=== PATIENT | male | born 1965 | race African-American/Black ===

== ENCOUNTER 2018-07-07 12:33 | Emergency (ER) | payer OTHER ==
[2018-07-07 12:50] VITALS: BP 155/94; PULSE 50; TEMP 98.3; BMI 32.8
[2018-07-07] MEDS ORDERED: KETOROLAC TROMETHAMINE 60 MG/2 ML VIAL IM ONE (15:35)
--- NOTE | 2018-07-07 15:42 | PDOC ---
History of Present Illness - General Chief Complaint: Injury Stated Complaint: FALL Time Seen by Provider: 07/07/18 15:17 History Source: Patient Exam Limitations: Clinical Condition - History of Present Illness Initial Comments: 07/07/18 15:37 Patient with no significant past medical history present with complaint of left- sided neck and left shoulder pain status post slip and fall going down a ramp today which was icy. Patient reported increased pain to left-sided neck with rotation of the neck to the right. Patient denies hitting head or loss of consciousness. Patient denies any other symptoms. Timing/Duration: 4-6 hours Past History - Past Medical History Allergies/Adverse Reactions: Allergies Allergy/AdvReac Type Severity Reaction Status Date / Time No Known Allergies Allergy Verified 07/07/18 12:50 Home Medications: Ambulatory Orders Methocarbamol [Robaxin -] 500 mg PO BID PRN #14 tablet 07/07/18 Naproxen 500 mg PO BID PRN #20 tablet 07/07/18 COPD: No - Suicide/Smoking/Psychosocial Hx Smoking History: Never smoked Information on smoking cessation initiated: No Hx Alcohol Use: No Drug/Substance Use Hx: No Review of Systems - Review of Systems Able to Perform ROS?: Yes Is the patient limited Greek proficient: No Constitutional: No: Malaise, Weakness HEENTM: No: Eye Pain, Blurred Vision, Recent change in vision Respiratory: No: Symptoms reported Cardiac (ROS): No: Symptoms Reported ABD/GI: No: Nausea, Vomiting Musculoskeletal: Yes: See HPI, Muscle Pain (posterior left shoulder), Neck Pain (left side of neck). No: Back Pain, Joint Swelling, Muscle Weakness, Joint Stiffness Neurological: No: Headache, Numbness, Paresthesia, Tingling All Other Systems: Reviewed and Negative *Physical Exam - Vital Signs Last Vital Signs Temp Pulse Resp BP Pulse Ox 98.3 F 50 L 19 155/94 99 07/07/18 12:48 07/07/18 12:48 07/07/18 12:48 07/07/18 12:48 07/07/18 12:48 - Physical Exam Comments: 07/07/18 15:39 GENERAL: Well developed, well nourished. Awake and alert. No acute distress. CARDIOVASCULAR: Regular rate and rhythm. No murmurs, rubs, or gallops. PULMONARY: No evidence of respiratory distress. Lungs clear to auscultation bilaterally. No wheezing, rales or rhonchi. ABDOMINAL: Soft. Non-tender. Non-distended. No rebound or guarding. No organomegaly. Normoactive bowel sounds MUSCULOSKELETAL : mild tenderness over posterior paravertebral muscle left side of neck and posterior left shoulder. Free range of motion of neck. 5 out of 5 muscle strength to left upper extremity. No bony deformities EXTREMITIES: No cyanosis. No clubbing. No edema. SKIN: Warm and dry. Normal capillary refill. No rashes. No jaundice. NEUROLOGICAL: Alert, awake, appropriate. No motor deficits in the lower extremities. Gait is normal without ataxia. PSYCHIATRIC: Cooperative. Good eye contact. Appropriate mood and affect. General Appearance: Yes: Nourished, Appropriately Dressed. No: Apparent Distress Moderate Sedation - Procedure Monitoring Vital Signs: Procedure Monitoring Vital Signs Temperature 98.3 F 07/07/18 12:48 Pulse Rate 50 L 07/07/18 12:48 Respiratory Rate 19 07/07/18 12:48 Blood Pressure 155/94 07/07/18 12:48 O2 Sat by Pulse Oximetry (%) 99 07/07/18 12:48 ED Treatment Course - RADIOLOGY Radiology Studies Ordered: Category Date Time Status SHOULDER-LEFT [RAD] Stat Radiology 07/07/18 15:34 Ordered SPINE-CERVICAL [RAD] Stat Radiology 07/07/18 15:34 Ordered Medical Decision Making - Medical Decision Making 07/07/18 15:41 Patient with no significant past medical history present with complaint of left- sided neck and shoulder pain status post slip and fall today. His exam significant for moderate tenderness to paracervical muscle C2-C5 and posterior left shoulder. Symptoms likely neck and shoulder strain. X-ray of cervical spine and left shoulder ordered. Toradol 60 mg IM ordered for pain. 07/07/18 16:06 X-ray of cervical spine and the shoulder shows no acute pathology. Symptoms likely neck and shoulder sprain. Patient stable for discharge on naproxen for pain and Robaxin muscle relaxer with orthopedics follow-up as needed. *DC/Admit/Observation/Transfer Diagnosis at time of Disposition: Neck muscle strain Qualifiers: Encounter type: initial encounter Qualified Code(s): S16.1XXA - Strain of muscle, fascia and tendon at neck level, initial encounter Left shoulder strain Qualifiers: Encounter type: initial encounter Qualified Code(s): S46.912A - Strain of unspecified muscle, fascia and tendon at shoulder and upper arm level, left arm , initial encounter - Discharge Dispostion Disposition: HOME Condition at time of disposition: Stable Decision to Admit order: No - Prescriptions Prescriptions: Methocarbamol [Robaxin -] 500 mg PO BID PRN #14 tablet PRN Reason: neck pain Naproxen 500 mg PO BID PRN #20 tablet PRN Reason: pain - Referrals Referrals: Alhaji Barajas DO [Staff Physician] - - Patient Instructions Printed Discharge Instructions: Whiplash Additional Instructions: X-ray shows no fracture or dislocation. Take prescribed medication as needed for pain. Rest neck and left shoulder. Apply heat to neck and shoulder 2-3 times a day for 5-10 minutes as needed for pain and follow-up with referred to orthopedics if symptoms persist for more than 4 days - Post Discharge Activity Forms/Work/School Notes: Back to Work
[2018-07-07] MEDS ORDERED: KETOROLAC TROMETHAMINE 60 MG/2 ML VIAL ONE (15:43)
== END 2018-07-07 16:12 | disposition home or self-care (01) ==
LOC: JERFT 12:33
PROC: 3E0233Z Introduction of Anti-inflammatory into Muscle, Percutaneous Approach (ICD-10-PCS; principal; 2018-07-07)
DX: S46.912A Strain of unspecified muscle, fascia and tendon at shoulder and upper arm level, left arm, initial encounter (principal); S16.1XXA Strain of muscle, fascia and tendon at neck level, initial encounter; V43.52XA Car driver injured in collision with other type car in traffic accident, initial encounter; Y93.89 Activity, other specified; Y92.410 Unspecified street and highway as the place of occurrence of the external cause
CPT/HCPCS: 72050-TC-FY; 73030-TC-LT-FY; 99281-25

== ENCOUNTER 2018-12-12 02:45 | Observation (INO) | payer SELFPAY ==
--- NOTE | 2018-12-12 03:02 | PDOC ---
History of Present Illness - General Chief Complaint: Chest Pain Stated Complaint: CHEST PAIN/LEFT ARM SENSATION Time Seen by Provider: 12/12/18 03:00 History Source: Patient Exam Limitations: No Limitations - History of Present Illness Initial Comments: Lorne Alcantara is a 53 yo obese M w a pmh of HTN who presents to the [facility] ER via private auto with the CC of left sided chest pain. The patient rates the pain as 6/10 and describes the pain as an uncomfortable sharp feeling. The patient states the pain radiates down his left arm. The patient states the pain is associated with nausea but no emesis. The patient states the pain has been present for almost a week now, has not gotten worse or better but is intermittent in nature. He states he does not believe the pain is worse with physical activity, is not associated with diaphoresis, and the pain is not worsened by taking a deep breath, movement of his arm, or palpation of his chest. The patient has not tried taking any medications for his pain. Patient endorses a significant family hx of heart disease. Denies ankle or wrist swelling, denies dyspnea on exertion, denies orthopnea. The patient denies recent travel/surgeries/immobility, lower extremity edema, calf pain or tenderness, tobacco use, hormone use, or personal history of thrombosis. 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 Denies smoking, cocaine usage, or illicit drug usage. Allergies: NKA, NKDA Past History - Past Medical History Allergies/Adverse Reactions: Allergies Allergy/AdvReac Type Severity Reaction Status Date / Time No Known Allergies Allergy Verified 12/12/18 06:00 Home Medications: Ambulatory Orders NK [No Known Home Medication] 12/12/18 COPD: No - Suicide/Smoking/Psychosocial Hx Smoking History: Never smoked Hx Alcohol Use: No Drug/Substance Use Hx: No Review of Systems - Review of Systems Able to Perform ROS?: Yes Comments:: CONSTITUTIONAL: Absent: fever, chills, diaphoresis, generalized weakness, malaise, loss of appetite HEENT: Absent: rhinorrhea, nasal congestion, throat pain, throat swelling, difficulty swallowing, mouth swelling, ear pain, eye pain, visual Changes CARDIOVASCULAR: Present: Chest pain Absent: syncope, palpitations, irregular heart rate, lightheadedness, peripheral edema RESPIRATORY: Absent: cough, shortness of breath, dyspnea with exertion, orthopnea, wheezing, stridor, hemoptysis GASTROINTESTINAL: Present: nausea Absent: abdominal pain, abdominal distension, vomiting, diarrhea, constipation, melena, hematochezia GENITOURINARY: Absent: dysuria, frequency, urgency, hesitancy, hematuria, flank pain, genital pain MUSCULOSKELETAL: Absent: myalgia, arthralgia, joint swelling SKIN: Absent: rash, itching, pallor HEMATOLOGIC/IMMUNOLOGIC: Absent: easy bleeding, easy bruising, lymphadenopathy, frequent infections ENDOCRINE: Absent: unexplained weight gain, unexplained weight loss, heat intolerance, cold intolerance NEUROLOGIC: Absent: headache, focal weakness or paresthesias, dizziness, unsteady gait, seizure, mental status changes, bladder or bowel incontinence PSYCHIATRIC: Absent: anxiety, depression, suicidal or homicidal ideation, hallucinations. *Physical Exam - Physical Exam Comments: GENERAL: Well developed, well nourished. Awake and alert. No acute distress. HEENT: Normocephalic, atraumatic. PERRLA, EOMI. No conjunctival pallor. Sclera are non- icteric. Moist mucous membranes. Oropharynx is clear. NECK: Supple. Full ROM. No JVD. No lymphadenopathy. CARDIOVASCULAR: Bradycardic rate. Regular rhythm. No murmurs, rubs, or gallops. Distal pulses are 2+ and symmetric. PULMONARY: No evidence of respiratory distress. Lungs clear to auscultation bilaterally. No wheezing, rales or rhonchi. ABDOMINAL: Soft. Non-tender. Non-distended. No rebound or guarding. No organomegaly. Normoactive bowel sounds. MUSCULOSKELETAL Normal range of motion at all joints. No bony deformities or tenderness. No CVA tenderness. EXTREMITIES: No cyanosis. No clubbing. No edema. No calf tenderness. SKIN: Warm and dry. Normal capillary refill. No rashes. No jaundice. NEUROLOGICAL: Alert, awake, appropriate. Cranial nerves 2-12 intact. No deficits to light touch in face, upper extremities and lower extremities. No motor deficits in the in face, upper extremities and lower extremities. Normal speech. Gait is normal without ataxia. PSYCHIATRIC: Cooperative. Good eye contact. Appropriate mood and affect. Heart Score/ECG Review - History History: Moderately suspicious - Electrocardiogram EKG: Significant ST-depression - Age Age: 45-65 - Risk Factors Risk Factors Heart Score: Yes Hx Hypertension, Yes Positive family hx of cardiac disease, Yes Hx Obesity Based on the list above the patient has:: >/=3 risk factors or Hx atherosclerotic disease - Troponin Troponin: </= normal limit - Score Heart Score - Total: 6 - ECG Intrepretation Rhythm: Regular Rhythm - [place]: Left [place] Deviation - P and VA Prominent R with upright T in V1 (true posterior MO): No Delta Wave(s) Present: No WPW: No - QRS Increased Voltage: Precordial Leads Poor R Wave Progression: No Q Wave Present: No - ST and T Early Repolarization: No Non Specific ST-T Wave changes: Yes ST Depression Suggest: Ischemia Flattened T Waves: Yes Prolonged Q-T Interval: No - ECG Impressions Normal ECG: No Non-specific ST Elevation: No Ischemic Changes: Yes (ST depressions V5/V6) Bradycardia: Yes Torsades mame Pointes: No WPW: No ED Treatment Course - LABORATORY CBC & Chemistry Diagram: 12/12/18 03:30 12/12/18 10:39 - RADIOLOGY Radiograph Interpretation: CXR: 2 view chest Chest pain Trachea midline with mild cardiomegaly. Mild uncoiling aortic arch with no mediastinal widening No infiltrate, mass or effusion in the lungs. No rib fracture or pneumothorax Impression: No infiltrate or edema in the lungs, no acute changes noted. Medical Decision Making - Medical Decision Making Lorne Alcantara is a 53 yo obese M w a pmh of HTN who presents to the [facility] ER via private auto with the CC of left sided chest pain. The patient rates the pain as 6/10 and describes the pain as an uncomfortable sharp feeling. The patient states the pain radiates down his left arm. The patient states the pain is associated with nausea but no emesis. The patient states the pain has been present for almost a week now, has not gotten worse or better but is intermittent in nature. He states he does not believe the pain is worse with physical activity, is not associated with diaphoresis, and the pain is not worsened by taking a deep breath, movement of his arm, or palpation of his chest. The patient has not tried taking any medications for his pain. Patient endorses a significant family hx of heart disease. Denies ankle or wrist swelling, denies dyspnea on exertion, denies orthopnea. The patient denies recent travel/surgeries/immobility, lower extremity edema, calf pain or tenderness, tobacco use, hormone use, or personal history of thrombosis. VS: Bradycardic in the mid 40's DDx IBNLT: ACS/MO, Angina, arrhythmia, heart failure, pneumothorax, PNA, electrolyte/metabolic disturbance, MSK chest pain/costochondritis, pericarditis - Low likelihood for PE as he is Wells score 0 HEART score: 6 Plan: Labs, EKG, CXR, IV hydration, admission to telemetry for cardiac workup including ECHO, stress test, and cardiac consult. EKG: Sinus bradycardia rate of 48, narrow complexes, LAD, borderline LVH, [address] depression in leads V4 and V5, no ST elevations, TWI in leads 2,3,aVF,V5,V6. VA - 174, QTc - 405. - No prior EKG's for comparison. Labs: Trop 1 negative. CXR: No acute pathology Disposition: Admission to Telemetry *DC/Admit/Observation/Transfer Diagnosis at time of Disposition: Acute electrocardiography changes Chest pain Qualifiers: Chest pain type: unspecified Qualified Code(s): R07.9 - Chest pain, unspecified - Discharge Dispostion Condition at time of disposition: Stable Decision to Admit order: Yes - Referrals - Patient Instructions - Post Discharge Activity
[2018-12-12] MEDS ORDERED: SODIUM CHLORIDE 500 ML IV STA (03:07)
--- NOTE | 2018-12-12 03:12 | PDOC ---
Attending Attestation - Resident Resident Name: Efren Mai - ED Attending Attestation I have performed the following: I have examined & evaluated the patient, The case was reviewed & discussed with the resident, I agree w/resident's findings & plan - HPI HPI: 12/12/18 04:50 left sided CP x 1 week on and off. Pt has low heart rate (last time her was in out ER years ago his heart rate was 50) and he has high BP for which he takes no meds (pt was told last year at [facility] that he has high BP when he was admitted for pneumonia) Pt has no SOB and he has no pitting edema. Just on and off CP that he thought he should get checked out. - Physicial Exam PE: 12/12/18 04:51 Agree with resident exam Pt's exam is normal. Pt has no pitting edema. Heart and lungs clear. - Medical Decision Making 12/12/18 04:52 EKG flipped T waves and normal labs and normal CXR and normal exam. Pt will be admitted to tele obs. Pt has no PMD and no wordpress developer to follow up. Heart Score/ECG Review - ECG Intrepretation Rhythm: Regular Rhythm - [place]: Normal - ST and T Early Repolarization: No Non Specific ST-T Wave changes: Yes Flattened T Waves: Yes Prolonged Q-T Interval: No - ECG Impressions Normal ECG: No Non-specific ST Elevation: No Ischemic Changes: Yes (inferior t waves flipped) Bradycardia: Yes Torsades mame Pointes: No WPW: No
[2018-12-12 03:43] LABS: EOS % 3.6 % (0-4.5)
[2018-12-12 03:56] LABS: BASO % 1.3 % (0-2.0); HEMATOCRIT 39.2 % (35.4-49); HEMOGLOBIN 13.3 GM/dL (11.7-16.9); INR 1.03 (0.83-1.09); LYMPH % 33.4 % (8-40); MCH 32.3 pg (25.7-33.7); MEAN CELL VOLUME 94.8 fl (80-96); MONO % 12.9 % (3.8-10.2); NEUT % 48.8 % (42.8-82.8); PLATELET COUNT 189 K/MM3 (134-434); PROTHROMBIN TIME (PATIENT) 12.2 SEC (9.7-13.0); RBC 4.13 M/mm3 (4.00-5.60); RDW 13.2 % (11.9-15.9); WHITE BLOOD COUNT 4.1 K/mm3 (4.0-10.0)
--- NOTE | 2018-12-12 04:48 | PN ---
Teaching Attending Note Name of Resident: Flei Ospina ATTENDING PHYSICIAN STATEMENT I saw and evaluated the patient. I reviewed the resident's note and discussed the case with the resident. I agree with the resident's findings and plan as documented. SUBJECTIVE: Patient is a 53 year old man with PMH of HTN who presents to the ER with left sided chest pain. He rates the pain as 6/10 and describes the pain as an uncomfortable sharp feeling that radiates down his left arm, associated with nausea but no emesis. The patient states the pain has been present for almost a week now, has not gotten worse or better but is intermittent in nature. He states he does not believe the pain is worse with physical activity, is not associated with diaphoresis, and the pain is not worsened by taking a deep breath, movement of his arm, or palpation of his chest. The patient has not tried taking any medications for his pain. Patient has a significant family history of heart disease. He has not been taking his antihypertensive medications for a while. Denies alcohol abuse, smoking or illicit drug usage. Denies ankle or wrist swelling, dyspnea on exertion, orthopnea, recent travel/surgeries/prolonged immobility, lower extremity edema, calf pain/tenderness, or history of VTE. OBJECTIVE: Alert Vital Signs Period Temp Pulse Resp BP Sys/[place] Pulse Ox Last 24 Hr 98.3 F 48-50 18 161-162/99-100 100-100 HEENT: No Jaundice, eye redness or discharge, PERRLA, EOMI. Normocephalic, atraumatic. External ears are normal and hearing is grossly intact. No nasal discharge. Neck: Supple, nontender. No palpable adenopathy or thyromegaly. No JVD Chest: Good effort. Clear to auscultation and percussion. Heart: Regular. No S3, rub or murmur Abdomen: Not distended, soft, nontender and no HSM. No rebound or guarding. Normal bowel sounds. Ext: Peripheral pulses intact. No leg edema. Skin: Warm and dry. No petechiae, rash or ecchymosis. Neuro: Alert. Oriented x3. CN 2-12 grossly intact. Sensation grossly intact in all four extremities and DTR are symmetric. Psych: Appropriate mood and affect. Good insight. Home Medications Medication Instructions Recorded NK [No Known Home Medication] 07/21/19 Abnormal Lab Results 12/12/18 03:30 Monocytes % 12.9 H Abnormal Lab Results 12/12/18 12/12/18 03:30 03:30 Monocytes % 12.9 H Chloride 108 H Anion Gap 4 L ASSESSMENT AND PLAN: 1. Chest pain - Patient has risk factors for CAD. Pain is now less intense. He got Aspirin 162 mg and 500 ml of IV NS in the ER. EKG shows sinus bradycardia with rate of 48, LAD, ST depression in leads V4 and V5, flat T waves in leads III, aVF, aVL, V1-3. There are no prior EKGs for comparison and initial troponin is normal. No acute abnormality on CXR. Will admit to telemetry to rule out ACS, get ECHO, TSH, fasting lipids, urinalysis, urine toxicology and consult Cardiology. 2. Obesity Counseled on the risks associated with obesity. Will provide patient all the necessary assistance, counseling and positive reinforcement to facilitate weight loss. Consult electric power machine operator. 3. Uncontrolled Hypertension - Will start Lisinopril 10 mg, HCTZ 12.5 mg and Amlodipine 5 mg. Revise regimen to ensure good BP control. Nonpharmacologic measures to control hypertension like weight loss, salt restriction and exercise discussed. 4. DVT prophylaxis - Lovenox 40 mg SQ q 24 hours. 5. Advance directives - Full code
[2018-12-12] MEDS ORDERED: ASPIRIN 81 MG CHEWABLE TABLETS PO ONE (04:50)
[2018-12-12 04:53] LABS: ALBUMIN 3.7 g/dl (3.4-5.0); BILIRUBIN,TOTAL 0.2 mg/dL (0.2-1); BLOOD UREA NITROGEN 16.2 mg/dL (7-18); CALCIUM 8.9 mg/dL (8.5-10.1); CREATININE 1.2 mg/dL (0.55-1.3); MAGNESIUM 2.2 mg/dL (1.8-2.4); N-TERMINAL BNP 31.3 pg/ml (5-125); POTASSIUM 4.2 mmol/L (3.5-5.1); TOT PROT 7.8 g/dl (6.4-8.2)
[2018-12-12] MEDS ORDERED: ASPIRIN 81 MG CHEWABLE TABLETS ONE (05:01)
[2018-12-12] MEDS ORDERED: LISINOPRIL 10 MG TABLET (FP) PO STA (05:57)
[2018-12-12] MEDS: LISINOPRIL 10 MG TABLET (FP) PO STA ×2 (06:06)
--- NOTE | 2018-12-12 06:57 | HP ---
CHIEF COMPLAINT: Chest pain PCP: Pt does not have PCP HISTORY OF PRESENT ILLNESS: 53 y.o. M PMH untreated HTN presents with midsternal chest pain of 1 week duration and hypertensive urgency. On admission, chest pain was sharp, 6/10 radiating down his left arm. The pain was non-reproducible, non-pleuritic. Pt endorses the pain started while he was at work lifting heavy boxes last week and it has since become progressively worse. He is able to walk multiple blocks without pain or shortness of breath. He also endorses nausea, denies emesis. Blood pressure on admission 162/100. Pt was on blood pressure medications about 1 year ago which he took for about 1 month but did not refill his medications. Patient says he has has a stress test in the past at [facility] but does not remember the results. Denies SOB/ fevers/ chills/ dizziness/ muscle pains. He has not followed up with a primary care doctor or cabin outfitter. Currently the patient's chest pain is 2/10 and does not radiate. ER course was notable for: (1) BP 161-18/ 99-102 (2) EKG sinus bradycardia 48, nonspecific ST changes (3) Neg trop x 1 (4) ASA 162, 500 cc bolus NS Recent Travel: Denies PAST MEDICAL HISTORY: HTN, pneumonia in 2018 (admitted to [facility], treated by Dr. 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 Neg paternal hx Allergies: NKDA/ NKFA No Known Allergies Allergy (Verified 12/12/18 06:00) HOME MEDICATIONS: Home Medications Medication Instructions Recorded NK [No Known Home Medication] 12/12/18 REVIEW OF SYSTEMS CONSTITUTIONAL: Absent: fever, chills, diaphoresis, generalized weakness, malaise, loss of appetite, weight change HEENT: Absent: rhinorrhea, nasal congestion, throat pain, throat swelling, difficulty swallowing, mouth swelling, ear pain, eye pain, visual changes CARDIOVASCULAR: CHEST PAIN Absent: syncope, palpitations, irregular heart rate, lightheadedness, peripheral edema RESPIRATORY: Absent: cough, shortness of breath, dyspnea with exertion, orthopnea, wheezing, stridor, hemoptysis GASTROINTESTINAL: Absent: abdominal pain, abdominal distension, nausea, vomiting, diarrhea, constipation, melena, hematochezia GENITOURINARY: Absent: dysuria, frequency, urgency, hesitancy, hematuria, flank pain, genital pain MUSCULOSKELETAL: Absent: myalgia, arthralgia, joint swelling, back pain, neck pain SKIN: Absent: rash, itching, pallor HEMATOLOGIC/IMMUNOLOGIC: Absent: easy bleeding, easy bruising, lymphadenopathy, frequent infections ENDOCRINE: Absent: unexplained weight gain, unexplained weight loss, heat intolerance, cold intolerance NEUROLOGIC: Absent: headache, focal weakness or paresthesias, dizziness, unsteady gait, seizure, mental status changes, bladder or bowel incontinence PSYCHIATRIC: Absent: anxiety, depression, suicidal or homicidal ideation, hallucinations. PHYSICAL EXAMINATION Vital Signs - 24 hr 12/12/18 12/12/18 12/12/18 03:00 03:25 03:48 Temperature 98.3 F Pulse Rate 50 L Pulse Rate [ 48 L Radial] Respiratory 18 Rate Blood Pressure 162/100 Blood Pressure 161/99 [Right Arm] O2 Sat by Pulse 100 100 100 Oximetry (%) 12/12/18 06:00 Temperature Pulse Rate Pulse Rate [ 47 L Radial] Respiratory 18 Rate Blood Pressure Blood Pressure 168/102 H [Right Arm] O2 Sat by Pulse 100 Oximetry (%) GENERAL: Awake, alert, and fully oriented, in no acute distress. Lying in bed. HEAD: Normal with no signs of trauma. EYES: No papilledema on fundoscopic exam. Pupils equal, round and reactive to light, extraocular movements intact, sclera anicteric, conjunctiva clear. EARS, NOSE, THROAT: Ears normal, nares patent, oropharynx clear without exudates. Moist mucous membranes. NECK: Normal range of motion, supple without lymphadenopathy LUNGS: Breath sounds equal, clear to auscultation bilaterally. No wheezes, and no crackles. No accessory muscle use. HEART: Regular rate and rhythm, normal S1 and S2 without murmur, rub or gallop. ABDOMEN: Soft, nontender, not distended, normoactive bowel sounds, no guarding, no masses. MUSCULOSKELETAL: Normal range of motion at all joints. No bony deformities or tenderness. Good ROM. 5/5 motor b/l UE/LE. UPPER EXTREMITIES: 2+ pulses, warm, well-perfused. No cyanosis. No clubbing. No peripheral edema. IV placed LUE. LOWER EXTREMITIES: 2+ pulses, warm, well-perfused. No calf tenderness. No peripheral edema. NEUROLOGICAL: Cranial nerves II-XII intact. Normal speech. PSYCHIATRIC: Cooperative. Good eye contact. Appropriate mood and affect. SKIN: Warm, dry, normal turgor, no rashes or lesions noted. Laboratory Results - last 24 hr Laboratory Last Values WBC 4.1 K/mm3 (4.0-10.0) 12/12/18 03:30 RBC 4.13 M/mm3 (4.00-5.60) 12/12/18 03:30 Hgb 13.3 GM/dL (11.7-16.9) 12/12/18 03:30 Hct 39.2 % (35.4-49) 12/12/18 03:30 MCV 94.8 fl (80-96) 12/12/18 03:30 MCH 32.3 pg (25.7-33.7) 12/12/18 03:30 MCHC 34.0 g/dl (32.0-35.9) 12/12/18 03:30 RDW 13.2 % (11.9-15.9) 12/12/18 03:30 Plt Count 189 K/MM3 (134-434) 12/12/18 03:30 MPV 10.0 fl (7.5-11.1) 12/12/18 03:30 Absolute Neuts (auto) 2.0 K/mm3 (1.5-8.0) 12/12/18 03:30 Neutrophils % 48.8 % (42.8-82.8) 12/12/18 03:30 Lymphocytes % 33.4 % (8-40) 12/12/18 03:30 Monocytes % 12.9 % (3.8-10.2) H 12/12/18 03:30 Eosinophils % 3.6 % (0-4.5) 12/12/18 03:30 Basophils % 1.3 % (0-2.0) 12/12/18 03:30 Nucleated RBC % 0 % (0-0) 12/12/18 03:30 PT with INR 12.20 SEC (9.7-13.0) 12/12/18 03:30 INR 1.03 (0.83-1.09) 12/12/18 03:30 Sodium 141 mmol/L (136-145) 12/12/18 03:30 Potassium 4.2 mmol/L (3.5-5.1) 12/12/18 03:30 Chloride 108 mmol/L (98-107) H 12/12/18 03:30 Carbon Dioxide 29 mmol/L (21-32) 12/12/18 03:30 Anion Gap 4 MMOL/L (8-16) L 12/12/18 03:30 BUN 16.2 mg/dL (7-18) 12/12/18 03:30 Creatinine 1.2 mg/dL (0.55-1.3) 12/12/18 03:30 Est GFR (CKD-EPI)AfAm 80.10 12/12/18 03:30 Est GFR (CKD-EPI)NonAf 69.11 12/12/18 03:30 Random Glucose 99 mg/dL (74-106) 12/12/18 03:30 Calcium 8.9 mg/dL (8.5-10.1) 12/12/18 03:30 Magnesium 2.2 mg/dL (1.8-2.4) 12/12/18 03:30 Total Bilirubin 0.2 mg/dL (0.2-1) 12/12/18 03:30 AST 28 U/L (15-37) 12/12/18 03:30 ALT 35 U/L (13-61) 12/12/18 03:30 Alkaline Phosphatase 73 U/L (45-117) 12/12/18 03:30 Creatine Kinase 191 U/L (26-308) 12/12/18 03:30 Creatine Kinase Index 0.7 % (0.0-5.0) 12/12/18 03:30 CK-MB (CK-2) 1.4 ng/mL (0.5-3.6) 12/12/18 03:30 Troponin I < 0.02 ng/ml (0.00-0.05) 12/12/18 03:30 B-Natriuretic Peptide 31.3 pg/ml (5-125) 12/12/18 03:30 Total Protein 7.8 g/dl (6.4-8.2) 12/12/18 03:30 Albumin 3.7 g/dl (3.4-5.0) 12/12/18 03:30 ASSESSMENT/PLAN: 53 y.o. M PMH HTN presenting with chest pain found to have hypertensive urgency. #Chest pain -EKGs show sinus john -1 dose ASA given -Cardio consulted (Dr. Godinez) -F/u repeat trop, echo, HbA1c, TSH, lipid profile, UA, UTox -CXR negative -Admitting to tele #Uncontrolled BP -Stat dose Lisinopril given @6AM -Started Lisinopril 10mg BID -Started HCTZ 12.5 mg daily #FEN -S/p 500cc bolus NS -No standing fluids -F/u BMP -Sodium & choesterol controlled diet #DVT PPX -SCDs #Code status FULL CODE Visit type - Emergency Visit Emergency Visit: Yes ED Registration Date: 12/12/18 Care time: The patient presented to the Emergency Department on the above date and was hospitalized for further evaluation of their emergent condition. - New Patient This patient is new to me today: Yes Date on this admission: 12/12/18 - Critical Care Critical Care patient: No ATTENDING PHYSICIAN STATEMENT I saw and evaluated the patient. I reviewed the resident's note and discussed the case with the resident. I agree with the resident's findings and plan as documented. SUBJECTIVE: OBJECTIVE: ASSESSMENT AND PLAN:
--- NOTE | 2018-12-12 08:45 | CON.CARD ---
Consult Consult Specialty:: cardiology Reason for Consultation:: chest pain; bradycardia - History of Present Illness Chief Complaint: no further chest pressure History of Present Illness: Mr. Alcantara is a 53 yr old black man with PMHx HTN (diagnosed 07/2017 when admitted at [facility] for PNA; followed up with medication for a few months, but noncompliant to further outpt visits), now admitted with central chest pressure he felt two days ago that kept him from sleep for the past two nights; started at rest each night when ready to sleep; mild in intensity; also had sharp transient (lasting a few seconds) left sided chest pain a few times at rest x 1 week on and off. Pt has low heart rate (last time her was in our ER, years ago, his heart rate was 50).Denies dizziness/palpitations/syncope. Pt has no SOB and he has no pitting edema, just on and off CP that he thought he should get checked out. No family hx CAD/XCVA. Pt smoked cigarettes in high school. Occasional glass of wine. 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 On no medications. Never had stress test; never had workup for bradycardia. Denies surgeries; no hx thyroid disease. - History Source History Provided By: Patient, Medical Record Limitations to Obtaining History: No Limitations - Past Medical History Cardio/Vascular: Yes: HTN, Other (bradycarida) - Alcohol/Substance Use Hx Alcohol Use: No - Smoking History Smoking history: Never smoked - Social History Usual Living Arrangement: With Significant Other Home Medications - Allergies Allergies/Adverse Reactions: Allergies Allergy/AdvReac Type Severity Reaction Status Date / Time No Known Allergies Allergy Verified 12/12/18 06:00 - Home Medications Home Medications: Ambulatory Orders NK [No Known Home Medication] 12/12/18 Family Disease History - Family Disease History Family History: Denies Review of Systems - Review of Systems Constitutional: reports: No Symptoms Eyes: reports: No Symptoms HENT: reports: No Symptoms Neck: reports: No Symptoms Cardiovascular: reports: Chest Pain Respiratory: reports: No Symptoms Gastrointestinal: reports: No Symptoms Genitourinary: reports: No Symptoms Breasts: reports: No Symptoms Reported Musculoskeletal: reports: No Symptoms Integumentary: reports: No Symptoms Neurological: reports: No Symptoms Endocrine: reports: No Symptoms Hematology/Lymphatic: reports: No Symptoms Psychiatric: reports: No Symptoms - Risk Factors Known Risk Factors: Yes: Age, Gender, Hypertension, Race Vital Signs: Vital Signs Temperature 98.3 F 12/12/18 03:00 Pulse Rate 47 L 12/12/18 06:00 Respiratory Rate 18 12/12/18 06:00 Blood Pressure 168/102 H 12/12/18 06:00 O2 Sat by Pulse Oximetry (%) 100 12/12/18 06:00 Constitutional: Yes: Calm Eyes: Yes: WNL HENT: Yes: WNL Neck: Yes: WNL Respiratory: Yes: WNL Gastrointestinal: Yes: WNL Renal/: Yes: WNL Cardiovascular: Yes: Bradycardia JVD: No Carotid Bruit: No PMI: Non-Displaced Heart Sounds: Yes: S1, S2, S4 Musculoskeletal: Yes: WNL Extremities: Yes: WNL Edema: No Peripheral Pulses WNL: Yes Integumentary: Yes: WNL Neurological: Yes: WNL ...Motor Strength: WNL Psychiatric: Yes: WNL - Other Data Labs, Other Data: CBC, BMP 12/12/18 03:30 12/12/18 03:30 INR, PTT INR 1.03 (0.83-1.09) 12/12/18 03:30 Troponin, BNP 12/12/18 12/12/18 03:30 03:30 Troponin I < 0.02 B-Natriuretic Peptide 31.3 Troponin, BNP 12/12/18 12/12/18 03:30 03:30 Troponin I < 0.02 B-Natriuretic Peptide 31.3 Abnormal Lab Results 12/12/18 10:39 Chloride 108 H Anion Gap 5 L Total LDL Cholesterol 152 H HDL Cholesterol 34 L Imaging - Results Chest X-ray: Image Reviewed (no acute pathology) EKG: Image Reviewed (marked sinus bradycardia) Problem List - Problems (1) Chest pressure Assessment/Plan: 1st TNI <0.02 EKG: marked sinus bradycardia; LAD. If f/u TNI is negative, will recommend stress treadmill MIBI in am (age; race; EKG changes; HTN; ? hyperlipidemia) to r/o CAD and aid in evaluating chronotropic response to exertion. F/u telemetry (bradycardia). F/u lipid profile. F/u TSH. Code(s): R07.89 - OTHER CHEST PAIN (2) Sinus bradycardia Assessment/Plan: f/u TSH. Appears to be asymptomatic sinus bradycardia. Evaluate chronotropic response when stress MIBI done on treadmill. Code(s): R00.1 - BRADYCARDIA, UNSPECIFIED (3) HTN (hypertension) Assessment/Plan: On lisinopril and HCTZ; f/u BP and HR serially. F/u BUN/Cr and electrolytes. Code(s): I10 - ESSENTIAL (PRIMARY) HYPERTENSION (4) Left axis deviation Assessment/Plan: EKG: marked sinus bradycardia; LAD. F/u ECHO for LVEF, wall thickness and motion; chamber sizes; valve status. Code(s): R94.31 - ABNORMAL ELECTROCARDIOGRAM [ECG] [EKG] (5) Hyperlipidemia Assessment/Plan: r/o: f/u lipid profile Code(s): E78.5 - HYPERLIPIDEMIA, UNSPECIFIED
[2018-12-12] MEDS: HYDROCHLOROTHIAZIDE 12.5 MG CAPSULE (FP) PO SCH (09:24)
[2018-12-12] MEDS: LISINOPRIL 10 MG TABLET (FP) PO SCH ×3 (09:24→21:39)
[2018-12-12 11:24] LABS: BLOOD UREA NITROGEN 12.9 mg/dL (7-18); CALCIUM 8.9 mg/dL (8.5-10.1); MAGNESIUM 2.3 mg/dL (1.8-2.4); PHOSPHOROUS 2.7 mg/dL (2.5-4.9); POTASSIUM 3.9 mmol/L (3.5-5.1)
--- NOTE | 2018-12-12 11:48 | PN ---
Progress Note (short form) - Note Progress Note: SUBJECTIVE: No further CP. Reports some associated nausea. No palpitations/ diaphoresis. No cough/sputum/hemoptysis/fever. OBJECTIVE: Afebrile, Hemodynamically Stable. Last Vital Signs Temp Pulse Resp BP Pulse Ox 98.3 F 47 L 18 168/102 H 100 12/12/18 03:00 12/12/18 06:00 12/12/18 06:00 12/12/18 06:00 12/12/18 06:00 HEENT - Atraumatic, Normocephalic. ANDREE. Heart - S1, S2, RRR Lungs - clear to auscultation. Abdomen - Soft, non-tender. Bowel Sounds normal. Extremities - no edema, no calf tenderness. Laboratory Results - last 24 hr 12/12/18 12/12/18 12/12/18 03:30 03:30 03:30 WBC 4.1 RBC 4.13 Hgb 13.3 Hct 39.2 MCV 94.8 MCH 32.3 MCHC 34.0 RDW 13.2 Plt Count 189 MPV 10.0 Absolute Neuts (auto) 2.0 Neutrophils % 48.8 Lymphocytes % 33.4 Monocytes % 12.9 H Eosinophils % 3.6 Basophils % 1.3 Nucleated RBC % 0 PT with INR INR Sodium 141 Potassium 4.2 Chloride 108 H Carbon Dioxide 29 Anion Gap 4 L BUN 16.2 Creatinine 1.2 Est GFR (CKD-EPI)AfAm 80.10 Est GFR (CKD-EPI)NonAf 69.11 Random Glucose 99 Hemoglobin A1c % Calcium 8.9 Phosphorus Magnesium 2.2 Total Bilirubin 0.2 AST 28 ALT 35 Alkaline Phosphatase 73 Creatine Kinase 191 Creatine Kinase Index 0.7 CK-MB (CK-2) 1.4 Troponin I < 0.02 B-Natriuretic Peptide 31.3 Total Protein 7.8 Albumin 3.7 Triglycerides Cholesterol Total LDL Cholesterol HDL Cholesterol TSH 12/12/18 12/12/18 12/12/18 03:30 10:39 10:39 WBC RBC Hgb Hct MCV MCH MCHC RDW Plt Count MPV Absolute Neuts (auto) Neutrophils % Lymphocytes % Monocytes % Eosinophils % Basophils % Nucleated RBC % PT with INR 12.20 INR 1.03 Sodium Potassium Chloride Carbon Dioxide Anion Gap BUN Creatinine Est GFR (CKD-EPI)AfAm Est GFR (CKD-EPI)NonAf Random Glucose Hemoglobin A1c % 5.5 Calcium Phosphorus Magnesium Total Bilirubin AST ALT Alkaline Phosphatase Creatine Kinase 166 Creatine Kinase Index CK-MB (CK-2) Troponin I < 0.02 B-Natriuretic Peptide Total Protein Albumin Triglycerides Cholesterol Total LDL Cholesterol HDL Cholesterol TSH 12/12/18 10:39 WBC RBC Hgb Hct MCV MCH MCHC RDW Plt Count MPV Absolute Neuts (auto) Neutrophils % Lymphocytes % Monocytes % Eosinophils % Basophils % Nucleated RBC % PT with INR INR Sodium 140 Potassium 3.9 Chloride 108 H Carbon Dioxide 28 Anion Gap 5 L BUN 12.9 Creatinine 1.0 Est GFR (CKD-EPI)AfAm 99.85 Est GFR (CKD-EPI)NonAf 86.15 Random Glucose 88 Hemoglobin A1c % Calcium 8.9 Phosphorus 2.7 Magnesium 2.3 Total Bilirubin AST ALT Alkaline Phosphatase Creatine Kinase Creatine Kinase Index CK-MB (CK-2) Troponin I B-Natriuretic Peptide Total Protein Albumin Triglycerides 105 Cholesterol 199 Total LDL Cholesterol 152 H HDL Cholesterol 34 L TSH 1.49 Current Medications Generic Name Dose Route Start Last Admin Trade Name Freq PRN Reason Stop Dose Admin Hydrochlorothiazide 12.5 mg 12/12/18 10:00 12/12/18 09:24 Hctz - PO 12.5 mg DAILY GLORIA Administration Lisinopril 10 mg 12/12/18 17:00 12/12/18 09:24 Prinivil PO 10 mg BID GLORIA Administration Home Medications Medication Instructions Recorded NK [No Known Home Medication] 12/12/18 ASSESSMENT/PLAN: 53 year old male with history of HTN (not on meds), presented with intermittent mid-sternal CP radiating down L arm, over the past week, related to activity, found to have hypertensive urgency. 1. Chest Pain, possibly demand due to strain sec to Hypertensive urgency TropI neg x 2, ECG - Sinus Michael, non-sp T wave changes. Non-compliant with BP meds for > 1 year. No headache/visual disturbance/limb numbness/weakness/tingling. Received ASA. Re-initiated on Lisinopril and HCTZ, BP still elevated. BP monitoring, serial tropI measurements. Evaluated by Cardio - for up-titration of anti-hypertensives and for Stress Test in AM. Nitroglycerin PRN. 2. Bradycardia Will monitor. Cardiology following. DVT Px - Heparin SQ Visit type - Emergency Visit Emergency Visit: Yes ED Registration Date: 12/12/18 Care time: The patient presented to the Emergency Department on the above date and was hospitalized for further evaluation of their emergent condition. - New Patient This patient is new to me today: Yes Date on this admission: 12/12/18 - Critical Care Critical Care patient: No - Discharge Referral Referred to [facility] No
[2018-12-12] MEDS: HEPARIN NA (PORCINE) 5,000 UNITS/ML 1ML VIAL SQ SCH ×2 (14:12→21:39)
[2018-12-12 15:27] VITALS: BMI 32.0
--- NOTE | 2018-12-12 17:41 | EKG ---
Test Reason : Blood Pressure : / mmHG Vent. Rate : 046 BPM Atrial Rate : 046 BPM P-R Int : 176 ms QRS Dur : 100 ms QT Int : 476 ms P-R-T Axes : 046 -08 038 degrees QTc Int : 416 ms SINUS BRADYCARDIA NONSPECIFIC T WAVE ABNORMALITY ABNORMAL ECG WHEN COMPARED WITH ECG OF 12-DEC-2018 02:48, NO SIGNIFICANT CHANGE WAS FOUND Confirmed by SARAH GARCIA MD ([id number]) on 12/12/2018 5:41:44 PM Referred By: Confirmed By:SARAH GARCIA MD
--- NOTE | 2018-12-12 17:42 | EKG ---
Test Reason : Blood Pressure : / mmHG Vent. Rate : 048 BPM Atrial Rate : 048 BPM P-R Int : 174 ms QRS Dur : 104 ms QT Int : 454 ms P-R-T Axes : 049 -35 022 degrees QTc Int : 405 ms SINUS BRADYCARDIA LEFT AXIS DEVIATION ABNORMAL ECG WHEN COMPARED WITH ECG OF 01-AUG-2001 03:34, NO SIGNIFICANT CHANGE WAS FOUND Confirmed by SARAH GARCIA MD ([id number]) on 12/12/2018 5:42:29 PM Referred By: Confirmed By:SARAH GARCIA MD
[2018-12-13] MEDS: HEPARIN NA (PORCINE) 5,000 UNITS/ML 1ML VIAL SQ SCH ×3 (05:37→22:14)
[2018-12-13] MEDS: LISINOPRIL 10 MG TABLET (FP) PO SCH ×3 (08:03→22:14)
[2018-12-13] MEDS: HYDROCHLOROTHIAZIDE 12.5 MG CAPSULE (FP) PO SCH ×2 (08:03→10:44)
--- NOTE | 2018-12-13 11:21 | PN ---
Progress Note, Physician History of Present Illness: Reports chest burning with ECG changes post-exercise which resolves with rest. - Current Medication List Current Medications: Active Medications Aspirin (Ecotrin -) 81 mg PO DAILY [facility] Heparin Sodium (Porcine) (Heparin -) 5,000 unit SQ TID [facility] Last Admin: 12/13/18 05:37 Dose: 5,000 unit Hydrochlorothiazide (Hctz -) 12.5 mg PO DAILY [facility] Last Admin: 12/13/18 10:44 Dose: Not Given Lisinopril (Prinivil) 10 mg PO BID [facility] Last Admin: 12/13/18 10:45 Dose: Not Given - Objective Vital Signs: Vital Signs Temperature 98.5 F 12/13/18 08:21 Pulse Rate 48 L 12/13/18 08:21 Respiratory Rate 18 12/13/18 08:52 Blood Pressure 137/98 12/13/18 08:21 O2 Sat by Pulse Oximetry (%) 97 12/13/18 08:52 Constitutional: Yes: No Distress, Calm Neck: Yes: Supple Cardiovascular: Yes: Regular Rate and Rhythm Respiratory: Yes: Regular, CTA Bilaterally Gastrointestinal: Yes: Normal Bowel Sounds, Soft Edema: No Labs: CBC, BMP 12/12/18 03:30 12/12/18 10:39 INR, PTT INR 1.03 (0.83-1.09) 12/12/18 03:30 Assessment/Plan 12/13/2018 ETT Myoview: Chronotropic competence, fixed inferior perfusion defect with perserved systolic function c/w diaphragmatic attenuation, mild lateral reversible perfusion defect c/w ischemia, dilated LV, mild decreased LVEF 41% 12/13/2018 Normal LV and RV size and fxn, mild ao diltataion, mild TR, tr GA, MR - Problems (1) Chest pressure Assessment/Plan: Ruled out for [place] EKG: marked sinus bradycardia; LAD. ETT Myoview showed mild lateral ischemia with ECG changes and sxs, start Norvasc 5 qd, ASA 81 qd, will discuss LHC if angina remains despite medical therapy Code(s): R07.89 - OTHER CHEST PAIN (2) Sinus bradycardia Assessment/Plan: Appears to be asymptomatic sinus bradycardia. Chronotropic competence confirmed during stress MIBI Code(s): R00.1 - BRADYCARDIA, UNSPECIFIED (3) HTN (hypertension) Assessment/Plan: On lisinopril 10 bid and d/c HCTZ; f/u BP and HR serially. F/u BUN/Cr and electrolytes. Code(s): I10 - ESSENTIAL (PRIMARY) HYPERTENSION (4) Left axis deviation Assessment/Plan: EKG: marked sinus bradycardia; LAD. F/u ECHO for LVEF, wall thickness and motion; chamber sizes; valve status. Code(s): R94.31 - ABNORMAL ELECTROCARDIOGRAM [ECG] [EKG] (5) Hyperlipidemia Assessment/Plan: LDL 152, start Lipitor 20 qd Code(s): E78.5 - HYPERLIPIDEMIA, UNSPECIFIED
--- NOTE | 2018-12-13 12:05 | ECHO ---
Name: LEATHA ABDI Exam:Adult Echocardiogram Study Date: 12/13/2018 08:47 AM Age: 53 yrs Reason For Study: valve abnormality Height: 76 in Weight: 263 lb BSA: 2.5 m2 MMode/2D Measurements & Calculations IVSd: 0.94 cm Ao root diam: 4.2 cm LVIDd: 5.7 cm LA dimension: 3.3 cm LVIDs: 4.0 cm LVPWd: 1.1 cm EDV(Teich): 159.3 ml LVOT diam: 2.2 cm ESV(Teich): 71.9 ml LAV (MOD-bp): 44.3 ml Doppler Measurements & Calculations MV E max conner: 29.6 cm/sec Ao V2 max: 112.7 cm/sec MV A max conner: 52.9 cm/sec Ao max P.1 mmHg MV E/A: 0.56 MV dec time: 0.56 sec CHRISTIE(V,D): 2.8 cm2 LV V1 max P.9 mmHg TR max conner: 190.0 cm/sec LV V1 max: 84.9 cm/sec TR max P.5 mmHg PA V2 max: 119.4 cm/sec Med Peak E' Conner: 5.1 cm/sec PA max P.7 mmHg Med E/e': 5.8 Lat Peak E' Conner: 4.8 cm/sec Lat E/e': 6.2 PI Vmax: 147.8 cm/sec Procedure The study was technically adequate with some images being suboptimal in quality. Left Ventricle The left ventricular size, thickness and function are normal. Ejection Fraction = 55-60%. Right Ventricle The right ventricle is normal in size and function. Atria Normal left and right atrial size and function. Mitral Valve The mitral valve is normal. There is trace mitral regurgitation. Tricuspid Valve The tricuspid valve is normal. There is mild tricuspid regurgitation. There was insufficient TR detec yu to calculate RV systolic pressure. Aortic Valve The aortic valve is normal in structure and function. The aortic valve opens well. The aortic valve i s trileaflet. No aortic regurgitation is present. Pulmonic Valve The pulmonic valve is not well visualized. Trace pulmonic valvular regurgitation. Great Vessels Mild aortic root dilatation. Pericardium/Pleura There is no pericardial effusion. Interpretation Summary There is no comparison study available. The left ventricular size, thickness and function are normal The right ventricle is normal in size and function. There is trace mitral regurgitation. Ejection Fraction = 55-60%. Mild aortic root dilatation. There is mild tricuspid regurgitation. Trace pulmonic valvular regurgitation. Nayan Holbrook MD 12/13/2018 12:04 PM
[2018-12-13] MEDS: ASPIRIN COATED 81 MG TABLET.EC PO SCH (14:35)
[2018-12-13] MEDS: amLODIPine BESYLATE 5 MG TABLET (FP) PO SCH (14:35)
--- NOTE | 2018-12-13 15:34 | PN ---
Physical Exam: SUBJECTIVE: Patient seen and examined at bedside. pt in no acute distress. pt denies chest pain, SOB, n/v. OBJECTIVE: Vital Signs Period Temp Pulse Resp BP Sys/Montes De Oca Pulse Ox Last 24 Hr 98 F-98.5 F 48-53 18-18 137-146/90-100 95-100 GENERAL: The patient is awake, alert, and fully oriented, in no acute distress. HEAD: Normal with no signs of trauma. LUNGS: Breath sounds equal, clear to auscultation bilaterally, no wheezes, no crackles, no accessory muscle use. HEART: Regular rate and rhythm, S1, S2 without murmur, rub or gallop. ABDOMEN: Soft, nontender, nondistended, normoactive bowel sounds EXTREMITIES: 2+ pulses, warm, well-perfused, no edema. SKIN: Warm, dry, normal turgor, no rashes or lesions noted Laboratory Results - last 24 hr 12/12/18 20:00 Creatine Kinase 138 Troponin I < 0.02 Active Medications Generic Name Dose Route Start Last Admin Trade Name Libia PRN Reason Stop Dose Admin Amlodipine Besylate 5 mg 12/13/18 14:15 12/13/18 14:35 Norvasc - PO 5 mg DAILY GLORIA Administration Aspirin 81 mg 12/13/18 10:00 12/13/18 14:35 Ecotrin - PO 81 mg DAILY GLORIA Administration Atorvastatin Calcium 20 mg 12/13/18 22:00 Lipitor - PO HS GLORIA Heparin Sodium (Porcine) 5,000 unit 12/12/18 14:00 12/13/18 14:35 Heparin - SQ 5,000 unit TID GLORIA Administration Lisinopril 10 mg 12/12/18 17:00 12/13/18 10:45 Prinivil PO Not Given BID GLORIA 12/13/2018 ETT Myoview: Chronotropic competence, fixed inferior perfusion defect with perserved systolic function c/w diaphragmatic attenuation, mild lateral reversible perfusion defect c/w ischemia, dilated LV, mild decreased LVEF 41% 12/13/2018 Normal LV and RV size and fxn, mild ao diltataion, mild TR, tr MS, MR ASSESSMENT/PLAN: 53 yo M PMH HTN (non -compliant with medications) presented with mid sternal CP. pt states this pain was related to activity. during hospital course, pt also having HTN ( systolic >160s) and bradycardia Chest pain possibly 2/2 demand ischemia -Trop neg x2, EKG- sinus john, non specific T wave changes -endorses non compliance with home medications -received ASA -stress test today -Nitroglycerin PRN -Cardiology consulted -norvasc 5 qd , Asa 81 qd as per cardio recs -possible LHC HTN -improving -c/w Lisinopril and d/c HCTZ -c/w monitoring BP Bradycardia -pt asymptomatic -Cardiology following. HLD -start Lipitor 20 daily DVT Px - Heparin SQ Visit type - Emergency Visit Emergency Visit: No - New Patient This patient is new to me today: Yes Date on this admission: 12/13/18 - Critical Care Critical Care patient: No - Discharge Referral Referred to [facility] Med P.C.: No ATTENDING PHYSICIAN STATEMENT I saw and evaluated the patient. I reviewed the resident's note and discussed the case with the resident. I agree with the resident's findings and plan as documented. SUBJECTIVE: OBJECTIVE: ASSESSMENT AND PLAN:
--- NOTE | 2018-12-13 17:13 | PN ---
Teaching Attending Note Name of Resident: Donna Steel ATTENDING PHYSICIAN STATEMENT I saw and evaluated the patient. I reviewed the resident's note and discussed the case with the resident. I agree with the resident's findings and plan as documented. SUBJECTIVE: No further CP. No palpitations/diaphoresis. No cough/sputum/ hemoptysis/fever. OBJECTIVE: Afebrile, Hemodynamically Stable. Last Vital Signs Temp Pulse Resp BP Pulse Ox 98.5 F 48 L 18 137/98 97 12/13/18 08:21 12/13/18 08:21 12/13/18 08:52 12/13/18 08:21 12/13/18 08:52 Heart - S1, S2, RRR Lungs - clear to auscultation. Abdomen - Soft, non-tender. Bowel Sounds normal. Extremities - no edema, no calf tenderness. Laboratory Results - last 24 hr 12/12/18 20:00 Creatine Kinase 138 Troponin I < 0.02 Current Medications Generic Name Dose Route Start Last Admin Trade Name Freq PRN Reason Stop Dose Admin Amlodipine Besylate 5 mg 12/13/18 14:15 12/13/18 14:35 Norvasc - PO 5 mg DAILY GLORIA Administration Aspirin 81 mg 12/13/18 10:00 12/13/18 14:35 Ecotrin - PO 81 mg DAILY GLORIA Administration Atorvastatin Calcium 20 mg 12/13/18 22:00 Lipitor - PO HS GLORIA Heparin Sodium (Porcine) 5,000 unit 12/12/18 14:00 12/13/18 14:35 Heparin - SQ 5,000 unit TID GLORIA Administration Lisinopril 10 mg 12/12/18 17:00 12/13/18 10:45 Prinivil PO Not Given BID [facility] ASSESSMENT/PLAN: 53 year old male with history of HTN (not on meds), presented with intermittent mid-sternal CP radiating down L arm, over the past week, related to activity, found to have hypertensive urgency. 1. Chest Pain, possibly demand due to strain sec to Hypertensive urgency TropI neg x 2, ECG - Sinus Michael, non-sp T wave changes. Non-compliant with BP meds for > 1 year. No headache/visual disturbance/limb numbness/weakness/tingling. Received ASA. Started on Lisinopril and Norvasc, HCTZ stopped. BP improving. Stress Test 12/13 - Chronotropic competence, fixed inferior perfusion defect with perserved systolic function c/w diaphragmatic attenuation, mild lateral reversible perfusion defect c/w ischemia, dilated LV, mild decreased LVEF 41%. Further guidance/management/transfer for Cardiac Cath as per Cardiology. 2. Bradycardia, asymptomatic Will continue to monitor. Cardiology for further recommendations. 3. HLD - LDL 152 Started on Lipitor. DVT Px - Heparin SQ
[2018-12-13 18:19] LABS: HEMATOCRIT 40.4 % (35.4-49); MCH 33.1 pg (25.7-33.7); MCHC 34.5 g/dl (32.0-35.9); MEAN CELL VOLUME 95.9 fl (80-96); MEAN PLT VOLUME 10.1 fl (7.5-11.1); PLATELET COUNT 213 K/MM3 (134-434); RBC 4.22 M/mm3 (4.00-5.60); RDW 13.8 % (11.9-15.9); WHITE BLOOD COUNT 5.8 K/mm3 (4.0-10.0)
[2018-12-13 18:32] LABS: BLOOD UREA NITROGEN 14.9 mg/dL (7-18); CALCIUM 9.5 mg/dL (8.5-10.1); CREATININE 1.2 mg/dL (0.55-1.3); MAGNESIUM 2.5 mg/dL (1.8-2.4); PHOSPHOROUS 3.1 mg/dL (2.5-4.9); POTASSIUM 4.4 mmol/L (3.5-5.1)
[2018-12-13] MEDS ORDERED: ATORVASTATIN CA 20 MG TABLET (FP) PO SCH (22:00)
[2018-12-14] MEDS: HEPARIN NA (PORCINE) 5,000 UNITS/ML 1ML VIAL SQ SCH (06:18)
[2018-12-14 06:26] VITALS: TEMP 98.6
[2018-12-14 06:53] LABS: HEMATOCRIT 40.8 % (35.4-49); HEMOGLOBIN 14.1 GM/dL (11.7-16.9); MCH 32.9 pg (25.7-33.7); MCHC 34.6 g/dl (32.0-35.9); MEAN CELL VOLUME 95.2 fl (80-96); MEAN PLT VOLUME 10.1 fl (7.5-11.1); PLATELET COUNT 206 K/MM3 (134-434); RBC 4.29 M/mm3 (4.00-5.60); RDW 13.6 % (11.9-15.9); WHITE BLOOD COUNT 5.6 K/mm3 (4.0-10.0)
[2018-12-14 08:17] LABS: BLOOD UREA NITROGEN 15.3 mg/dL (7-18); CREATININE 1.1 mg/dL (0.55-1.3); MAGNESIUM 2.2 mg/dL (1.8-2.4); PHOSPHOROUS 3.9 mg/dL (2.5-4.9); POTASSIUM 4.2 mmol/L (3.5-5.1)
[2018-12-14 09:19] LABS: CALCIUM 10.6 mg/dL (8.5-10.1)
[2018-12-14] MEDS ORDERED: ATORVASTATIN CA 40 MG TABLET (FP) PO SCH (09:56)
[2018-12-14] MEDS: amLODIPine BESYLATE 5 MG TABLET (FP) PO SCH (11:01)
[2018-12-14] MEDS: LISINOPRIL 10 MG TABLET (FP) PO SCH (11:01)
[2018-12-14] MEDS: ASPIRIN COATED 81 MG TABLET.EC PO SCH (11:01)
--- NOTE | 2018-12-14 11:02 | PN ---
Progress Note, Physician Chief Complaint: Pt A&Ox3; no chest pain (ambulated in hallway); no dyspnea or palpitations; History of Present Illness: Mr. Alcantara is a 53 yr old black man with PMHx HTN (diagnosed 07/2017 when admitted at [facility] for PNA; followed up with medication for a few months, but noncompliant to further outpt visits), now admitted with central chest pressure he felt two days ago that kept him from sleep for the past two nights; started at rest each night when ready to sleep; mild in intensity; also had sharp transient (lasting a few seconds) left sided chest pain a few times at rest x 1 week on and off. Pt has low heart rate (last time her was in our ER, years ago, his heart rate was 50).Denies dizziness/palpitations/syncope. Pt has no SOB and he has no pitting edema, just on and off CP that he thought he should get checked out. No family hx CAD/XCVA. Pt smoked cigarettes in high school. Occasional glass of wine. 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 On no medications. Never had stress test; never had workup for bradycardia. Denies surgeries; no hx thyroid disease. - Current Medication List Current Medications: Active Medications Amlodipine Besylate (Norvasc -) 5 mg PO DAILY [facility] Last Admin: 12/13/18 14:35 Dose: 5 mg Aspirin (Ecotrin -) 81 mg PO DAILY [facility] Last Admin: 12/13/18 14:35 Dose: 81 mg Atorvastatin Calcium (Lipitor -) 40 mg PO [facility] Heparin Sodium (Porcine) (Heparin -) 5,000 unit SQ TID [facility] Last Admin: 12/14/18 06:18 Dose: 5,000 unit Lisinopril (Prinivil) 10 mg PO BID [facility] Last Admin: 12/13/18 22:14 Dose: 10 mg - Objective Vital Signs: Vital Signs Temperature 98.6 F 12/14/18 06:00 Pulse Rate 53 L 12/14/18 06:00 Respiratory Rate 18 12/14/18 06:00 Blood Pressure 135/69 12/14/18 06:00 O2 Sat by Pulse Oximetry (%) 95 12/14/18 00:00 Constitutional: Yes: Well Nourished Eyes: Yes: WNL HENT: Yes: WNL Neck: Yes: WNL Cardiovascular: Yes: WNL Respiratory: Yes: WNL Gastrointestinal: Yes: WNL ...Rectal Exam: Yes: Deferred Genitourinary: Yes: WNL Musculoskeletal: Yes: WNL Extremities: Yes: WNL Edema: No Peripheral Pulses WNL: Yes Integumentary: Yes: WNL Neurological: Yes: WNL ...Motor Strength: WNL Psychiatric: Yes: WNL Labs: CBC, BMP 12/14/18 05:20 12/14/18 05:20 INR, PTT INR 1.03 (0.83-1.09) 12/12/18 03:30 - ....Imaging Other: Image Reviewed (telemetry: NSR; no arrhythjmias) Problem List - Problems (1) Chest pressure Assessment/Plan: Stress MIBI: mild lateral wall ischemia. Pt defers coronary angiogram at this time. Madhuri saavedra plans to go home on medicattion, follow a heart-healthy diet, and exercise, as he states he had discussed earlier with Dr. Jimenez, . Cardiac rehabilitation would be of benefit, and was discussed in detail with him; he expressed interest in starting the [facility] program as an outpatient. Fro a cardiac standpoint, pt may be followed as an outpatient. The above was confirmed with Dr. Godinez. Continue statin; f/u lipid profile serially as outpt. Code(s): R07.89 - OTHER CHEST PAIN (2) Sinus bradycardia Assessment/Plan: Normal TSH. Chronitopic competence noted on stress treadmill. Code(s): R00.1 - BRADYCARDIA, UNSPECIFIED (3) HTN (hypertension) Assessment/Plan: BP much improved on [id number] and amlodipine. Code(s): I10 - ESSENTIAL (PRIMARY) HYPERTENSION (4) Left axis deviation Code(s): R94.31 - ABNORMAL ELECTROCARDIOGRAM [ECG] [EKG] (5) Hyperlipidemia Code(s): E78.5 - HYPERLIPIDEMIA, UNSPECIFIED
--- NOTE | 2018-12-14 11:51 | PN ---
Teaching Attending Note Name of Resident: Donna Steel ATTENDING PHYSICIAN STATEMENT I saw and evaluated the patient. I reviewed the resident's note and discussed the case with the resident. I agree with the resident's findings and plan as documented. SUBJECTIVE:asymptomatic. no repeat episodes of CP./ denies CP, SOB, fever, chills, N/V/C/D or palpitations OBJECTIVE: Last Vital Signs Temp Pulse Resp BP Pulse Ox 98.6 F 53 L 18 135/69 95 12/14/18 06:00 12/14/18 06:00 12/14/18 06:00 12/14/18 06:00 12/14/18 00:00 general NAD ASSESSMENT AND PLAN: 53 yo M with PMH of HTN (not on meds), presented with intermittent mid-sternal CP radiating down L arm, over the past week, related to activity, found to have hypertensive urgency. 1. CP- R/o ACS. Stres test showing lateral reversible perfusion defect. evaluated by cardio and plan for medical management at this time and when medication compliance can be ascertained possible cath in the future. plan discussed in detail with cardio. plan for cardiac rehab as outpatient at [facility]. on asa/statin and tight BP control. will need cardio outpatient as follow up 2. Asymptomatic bradycardia- chronotropic response during stress test. no further workup 3. HTN urgency- due to medication noncompliance. now controlled. stressed importance of medication compliance and follow up 4. DVT ppx- Hep sq 5. d/c home today. stressed importance of medication compliance and follow up
[2018-12-14 13:26] VITALS: BP 139/94; PULSE 62
--- NOTE | 2018-12-14 13:42 | EKG ---
Test Reason : Blood Pressure : / mmHG Vent. Rate : 058 BPM Atrial Rate : 058 BPM P-R Int : 164 ms QRS Dur : 100 ms QT Int : 418 ms P-R-T Axes : 024 -34 -45 degrees QTc Int : 410 ms SINUS BRADYCARDIA LEFT AXIS DEVIATION T WAVE ABNORMALITY, CONSIDER INFEROLATERAL ISCHEMIA ABNORMAL ECG Confirmed by Gamal Mancia MD ([id number]) on 12/14/2018 1:41:53 PM Referred By: JANA CONTRERAS Confirmed By:Gamal Mancia MD
--- NOTE | 2018-12-14 16:07 | DS ---
Physical Exam: SUBJECTIVE: Patient seen and examined OBJECTIVE: Vital Signs Period Temp Pulse Resp BP Sys/Montes De Oca Pulse Ox Last 24 Hr 98.3 F-98.6 F 46-62 18-18 126-145/69-94 95 PHYSICAL EXAM GENERAL: The patient is awake, alert, and fully oriented, in no acute distress. HEAD: Normal with no signs of trauma. EYES: PERRL, extraocular movements intact, sclera anicteric, conjunctiva clear. ENT: Ears normal, nares patent, oropharynx clear without exudates, moist mucous membranes. NECK: Trachea midline, full range of motion, supple. LUNGS: Breath sounds equal, clear to auscultation bilaterally, no wheezes, no crackles, no accessory muscle use. HEART: Regular rate and rhythm, S1, S2 without murmur, rub or gallop. ABDOMEN: Soft, nontender, nondistended, normoactive bowel sounds, no guarding, no rebound, no hepatosplenomegaly, no masses. EXTREMITIES: 2+ pulses, warm, well-perfused, no edema. NEUROLOGICAL: Cranial nerves II through XII grossly intact. Normal speech, gait not observed. PSYCH: Normal mood, normal affect. SKIN: Warm, dry, normal turgor, no rashes or lesions noted. LABS Laboratory Results - last 24 hr 12/13/18 12/13/18 12/14/18 18:00 18:00 05:20 WBC 5.8 5.6 RBC 4.22 4.29 Hgb 14.0 14.1 Hct 40.4 40.8 MCV 95.9 95.2 MCH 33.1 32.9 MCHC 34.5 34.6 RDW 13.8 13.6 Plt Count 213 206 MPV 10.1 10.1 Sodium 139 Potassium 4.4 Chloride 102 Carbon Dioxide 30 Anion Gap 6 L BUN 14.9 Creatinine 1.2 Est GFR (CKD-EPI)AfAm 80.10 Est GFR (CKD-EPI)NonAf 69.11 Random Glucose 91 Calcium 9.5 Phosphorus 3.1 Magnesium 2.5 H 12/14/18 05:20 WBC RBC Hgb Hct MCV MCH MCHC RDW Plt Count MPV Sodium 139 Potassium 4.2 Chloride 105 Carbon Dioxide 27 Anion Gap 7 L BUN 15.3 Creatinine 1.1 Est GFR (CKD-EPI)AfAm 88.98 Est GFR (CKD-EPI)NonAf 76.77 Random Glucose 87 Calcium 10.6 H Phosphorus 3.9 Magnesium 2.2 12/13/2018 ETT Myoview: Chronotropic competence, fixed inferior perfusion defect with perserved systolic function c/w diaphragmatic attenuation, mild lateral reversible perfusion defect c/w ischemia, dilated LV, mild decreased LVEF 41% 12/13/2018 Normal LV and RV size and fxn, mild ao diltataion, mild TR, tr ME, MR HOSPITAL COURSE: Date of Admission:12/12/18 53 yo M PMH HTN (non -compliant with medications) presented with mid sternal CP. pt states this pain was related to activity. during hospital course, pt also having HTN ( systolic >160s) and bradycardia. The pt states that he is non- compliant with his home medications. Throughout the hospital course, pt had negative troponins. EKG showed sinus john and non specific T wave changes. In the hospital, pt was given Asa. Pt given Lisinopril and norvasc for BP control. The pt denied symptoms from bradicardia throughout the hospital course. For pt hld, pt was treated with Lipitor. Pt was discharged with lipitor 40 mg daily. the pt had a stress test showing reversible ischemia. the pt is recommended to follow up with cardiology for medical management vs left heart cath. cardiology recommends cardiac rehabilitation, pt expressed interest in starting the [facility] program as an outpatient. the pt lab results show elevated LDL and decreased HDL. The pt was counselled on the importance of compliance with his medications, and following up with physicians. pt was counselled on lifestyle modification with diet and exercise. Date of Discharge: 12/14/18 Minutes to complete discharge: 36 Discharge Summary Reason For Visit: ACUTE ELECTROCARDIOGRAPHY,CHEST PAIN Condition: Improved - Instructions Diet, Activity, Other Instructions: You came into the hospital with tightness in your chest and high blood pressure. You were treated with medications to control your blood pressure. Your blood work shows that you have high cholesterol. You had a stress test to monitor your heart. Your heart function is abnormal when you exercise. You were monitored by the boat hand and your medications were altered. Please follow up with your boat hand as you may need additional medication changes or a heart catheterization. The boat hand recommends cardiac rehabilitation as it would be beneficial for you. Please follow up with your physician regarding starting at the [facility] program as an outpatient. Medications: -Please continue taking Lisinopril 10 mg twice daily -Please continue taking Norvasc 5 mg daily -Please continue taking Aspirin 81mg daily -Please continue taking Atorvastatin 40 mg daily Please follow up with your boat hand, Dr. Godinez, to manage your heart condition. Please follow up with your primary care physician to manage your health and monitor your improvement. Please continue to follow a low sodium/ low fat diet. Please return to the ER if you have any signs or symptoms of chest pain, shortness of breath, uncontrollable fever, chills, nausea, vomiting, numbness, tingling, or weakness in any part of your body, changes in vision, or slurred speech. Please return to the ER if symptoms persist, worsen, or new symptoms arise. Referrals: [facility] [place] [facility] [place] [Provider Group] Onesimo Godinez MD [Staff Physician] - Disposition: HOME - Home Medications Comprehensive Discharge Medication List: Ambulatory Orders Amlodipine Besylate [Norvasc -] 5 mg PO DAILY #30 tablet 12/14/18 Aspirin Coated [Ecotrin -] 81 mg PO DAILY 30 Days tablet.ec 12/14/18 Atorvastatin Ca [Lipitor] 40 mg PO HS #30 tablet 12/14/18 Lisinopril [Prinivil] 10 mg PO BID #60 tablet 12/14/18 This patient is new to me today: No Emergency Visit: No Critical Care patient: No - Discharge Referral Referred to [facility] Med P.C.: No ATTENDING PHYSICIAN STATEMENT I saw and evaluated the patient. I reviewed the resident's note and discussed the case with the resident. I agree with the resident's findings and plan as documented. SUBJECTIVE: OBJECTIVE: ASSESSMENT AND PLAN:
--- NOTE | 2018-12-16 14:39 | EKG ---
Test Reason : Blood Pressure : / mmHG Vent. Rate : 051 BPM Atrial Rate : 051 BPM P-R Int : 170 ms QRS Dur : 098 ms QT Int : 434 ms P-R-T Axes : 036 -35 -05 degrees QTc Int : 400 ms SINUS BRADYCARDIA LEFT AXIS DEVIATION NONSPECIFIC T WAVE ABNORMALITY ABNORMAL ECG WHEN COMPARED WITH ECG OF 13-DEC-2018 12:45, NONSPECIFIC T WAVE ABNORMALITY HAS REPLACED INVERTED T WAVES IN INFERIOR LEADS Confirmed by SVETA WILSON, LO ([id number]) on 12/16/2018 2:39:19 PM Ref[facility] By: [facility] Confirmed By:LO BANGURA MD
== END 2018-12-14 14:33 | disposition home or self-care (01) ==
LOC: JER 02:45 → JERBED 04:21 → J4W 07:08
PROVIDERS: ADMIT Internal Medicine; ATTEND Internal Medicine
PROC: 3E0337Z Introduction of Electrolytic and Water Balance Substance into Peripheral Vein, Percutaneous Approach (ICD-10-PCS; principal; 2018-12-12)
PROC: 3E013GC Introduction of Other Therapeutic Substance into Subcutaneous Tissue, Percutaneous Approach (ICD-10-PCS; 2018-12-12)
DX: R07.89 Other chest pain (principal); I16.0 Hypertensive urgency; I11.9 Hypertensive heart disease without heart failure; R00.1 Bradycardia, unspecified; R94.31 Abnormal electrocardiogram [ECG] [EKG]; E78.5 Hyperlipidemia, unspecified; E66.9 Obesity, unspecified; Z68.32 Body mass index [BMI] 32.0-32.9, adult; Z82.49 Family history of ischemic heart disease and other diseases of the circulatory system; Z91.19 Patient's noncompliance with other medical treatment and regimen
CPT/HCPCS: 36415; 71046-TC-FY; 78452-TC; 80048; 80053; 80061; 82550; 82553; 83036; 83721; 83735; 83880; 84100; 84443; 84484; 85025; 85027; 85610; 93005; 93010; 93017; 93306-TC; 99284-25; A9502; G0378; J1644